=== PATIENT | male | born 2000 | race Caucasian/White ===

== ENCOUNTER 2018-06-25 15:42 | Emergency (ER) | payer OTHER ==
[2018-06-25] MEDS ORDERED: Ketorolac Tromethamine 30 MG/ML VIAL ONE (17:43)
[2018-06-25] MEDS ORDERED: cefTRIAXone\\ROCEPHIN 1 GM VIAL ONE (17:43)
[2018-06-25] MEDS ORDERED: Dexamethasone 10 MG/ML VIAL ONE (17:43)
[2018-06-25 17:55] LABS: MONO NEGATIVE CONTROL ZONE White (Negative) (White); MONO POSITIVE CONTROL Pink Line (Positive) (PINK/RED); Mononucleosis POSITIVE (NEGATIVE)
== END 2018-06-25 18:10 | disposition home or self-care (01) ==
LOC: ERS 15:42
DX: B27.90 Infectious mononucleosis, unspecified without complication (principal); F17.210 Nicotine dependence, cigarettes, uncomplicated
CPT/HCPCS: 36415; 86308; 87081; 87430; 96365; 96375; J0696; J1100; J1885

== ENCOUNTER 2018-09-17 14:49 | Emergency (ER) | payer OTHER ==
[2018-09-17] MEDS ORDERED: Ondansetron ODT 4 MG TAB ONE (15:11)
--- NOTE | 2018-09-17 16:07 | RAD ---
PA AND LATERAL VIEWS CHEST: Date: 09/17/18 HISTORY: Cough. FINDINGS: The cardiomediastinum is normal. The lungs are well expanded and clear. The bony thorax is normal. IMPRESSION: Normal exam. POS: [facility]
== END 2018-09-17 16:23 | disposition home or self-care (01) ==
LOC: ERS 14:49
DX: J20.9 Acute bronchitis, unspecified (principal); R11.2 Nausea with vomiting, unspecified; F90.9 Attention-deficit hyperactivity disorder, unspecified type; F17.220 Nicotine dependence, chewing tobacco, uncomplicated
CPT/HCPCS: 71046; 87081; 87430; 87804; Q0162

== ENCOUNTER 2021-01-30 12:54 | Emergency (ER) | payer OTHER | END 2021-01-30 13:46 | disposition home or self-care (01) | LOC: ERS 12:54 | DX: S01.81XD Laceration without foreign body of other part of head, subsequent encounter (principal); X58.XXXD Exposure to other specified factors, subsequent encounter ==